=== PATIENT | male | born 1990 | race Two or more races ===

== ENCOUNTER 2022-06-30 04:54 | Emergency (ER) | payer OTHER ==
[~2022-06-30] VITALS: Ht 175.3 cm; Wt 104.3 kg
[2022-06-30 05:03] VITALS: BP 151/94
--- NOTE | 2022-06-30 05:03 | NUR ---
[facility] FOR [facility]. NO MEDICAL COMPLAINT
--- NOTE | 2022-06-30 05:10 | NUR ---
Patient discharged to [facility] custody in stable condition. Written and verbal after care instructions given. Patient verbalizes understanding of instruction.
== END 2022-06-30 05:13 ==
LOC: ER 04:54
DX: Z02.89 Encounter for other administrative examinations (principal); G47.30 Sleep apnea, unspecified; F17.200 Nicotine dependence, unspecified, uncomplicated; Z90.49 Acquired absence of other specified parts of digestive tract